=== PATIENT | male | born 1980 | race African-American/Black ===

== ENCOUNTER 2016-03-31 19:29 | Emergency (ER) | payer SELFPAY ==
[~2016-03-31] VITALS: Ht 160 cm; Wt 94.0 kg
[~2016-03-31 19:29] MED LIST: CLIN1CAP6 PO; HYDR-3533 PO; NAPR500 PO; PENI500T PO
[2016-03-31 19:31] VITALS: BP 168/95; PULSE 66; RESP 14; TEMP 98.4; O2SAT 98
[2016-03-31] MEDS ORDERED: AMOX500T PO (20:01)
[2016-03-31] MEDS ORDERED: DICL50TA3 PO (20:01)
--- NOTE | 2016-03-31 20:04 | PD ---
HPI Chief Complaint: Oral / Dental Pain or Problem Time Seen by Provider: 20:01 Travel History International Travel<30 days: No Contact w/Intl Traveler<30days: No Traveled to known affect area: No History of Present Illness HPI 35-year-old white male presents to emergency Department with complaints of dental pain. He states that he has at least a half a dozen bad teeth that need to be extracted. He states that he's been fighting dental pain for quite some time. It is progressively getting worse. Cold makes it worse. Patient denies any fever or chills. He states that he had a cold last week. That has resolved. No nausea vomiting. No fever chills now. PFSH Past Medical History Medical History: Denies Significant Hx Diminished Hearing: No Tetanus Vaccination: Unknown Past Surgical History Surgical History: No Previous Surgery Social History Alcohol Use: No Tobacco Use: Yes (1 PPD) Substance Use: No Allergies-Medications (Allergen,Severity, Reaction): Coded Allergies: No Known Allergies (Unverified , 03/31/16) Reported Meds & Prescriptions Reported Meds & Active Scripts Active No Active Prescriptions or Reported Medications Review of Systems Except as stated in HPI: all other systems reviewed are Neg Physical Exam Narrative GENERAL: Well-developed, well-nourished in no acute distress. Nontoxic appearing. HEAD: Normocephalic, atraumatic. EYES: Pupils equal round and reactive. Extraocular motions intact. No scleral icterus. No injection or drainage. ENT: TMs clear without erythema. The external auditory canals clear. Nose: clear . Posterior pharynx is pink and moist. No tonsillar edema or exudate. Uvula midline. Airway patent. The patient has diffuse periodontal disease with gingival edema and recession. He has multiple, multiple dental caries in various stages of decay. NECK: Trachea midline.Supple, nontender, moves head freely. No central bony tenderness or spasm. CARDIOVASCULAR: Regular rate and rhythm without murmurs, gallops, or rubs. RESPIRATORY: Clear to auscultation. Breath sounds equal bilaterally. No wheezes , rales, or rhonchi. GASTROINTESTINAL: Abdomen soft, non-tender, nondistended. No hepato-splenomegaly , or palpable masses. No guarding. EXTREMITIES: No clubbing, cyanosis, or edema. No joint tenderness, effusion, or edema noted. BACK: Nontender without deformity or crepitance. No flank tenderness. Data Data Last Documented VS Vital Signs Date Time Temp Pulse Resp B/P Pulse Ox O2 Delivery O2 Flow Rate FiO2 03/31/16 19:31 98.4 66 14 168/95 98 Room Air MDM Medical Decision Making Medical Screen Exam Complete: Yes Emergency Medical Condition: Yes Medical Record Reviewed: Yes Differential Diagnosis MDM: Moderate Differential diagnoses: Dental abscess, dental caries, osteitis, cellulitis Narrative Course This is dental caries, dentalgia Diagnosis Primary Impression: Dental caries Additional Impression: Dentalgia Patient Instructions: General Instructions Additional Instructions: Rest. Saltwater gargles. Holt oil on cotton balls. Amoxicillin and diclofenac follow-up with a dentist as soon as possible. And return to the ER if any problems. Med/Other Pt SpecificInfo: Prescription(s) given Scripts Diclofenac Sodium DR 50 Mg Tabdr50 Mg PO TID #21 TAB Prov:Tanisha Bullard DO 03/31/16 Amoxicillin 500 Mg Tab1,000 Mg PO BID #40 TAB Prov:Tanisha Bullard DO 03/31/16 Disposition: 01 DISCHARGE HOME Condition: Stable Stanford Acuna Mar 31, 2016 20:03
== END 2016-03-31 20:33 | disposition home or self-care (01) ==
LOC: NEPB 19:29
DX: K02.9 Dental caries, unspecified (principal); F17.210 Nicotine dependence, cigarettes, uncomplicated
CPT/HCPCS: 99282

== ENCOUNTER 2017-07-31 09:20 | Emergency (ER) | payer SELFPAY ==
[~2017-07-31] VITALS: Ht 160 cm; Wt 80.0 kg
[~2017-07-31 09:20] MED LIST changes: +AMOX500T PO; -CLIN1CAP6 PO; +DICL50TA3 PO; -HYDR-3533 PO; -NAPR500 PO; -PENI500T PO
[2017-07-31 09:27] VITALS: BP 165/89; PULSE 87; RESP 14; TEMP 97.6; O2SAT 100
[2017-07-31] MEDS ORDERED: CLIN150C14 PO (10:15)
--- NOTE | 2017-07-31 10:18 | PD ---
HPI Chief Complaint: Oral / Dental Pain or Problem Time Seen by Provider: 10:08 Travel History International Travel<30 days: No Contact w/Intl Traveler<30days: No Traveled to known affect area: No History of Present Illness HPI Patient comes to the emergency department complaining of right lower dental pain ongoing for 3 years. Patient reports pain got worse last night when his upper tooth fell out. Patient reports taking various pain medications with minimal to no relief of symptoms. Smoking makes pain worse. Reports pain radiates throughout the right side of his face. He states he has not been able to see a dentist for this secondary to finances. Patient denies anything making the pain better. Patient states he does not want anything for pain just wants a prescription for some antibiotics. PFSH Past Medical History Medical History: Denies Significant Hx Diminished Hearing: No Social History Alcohol Use: No Tobacco Use: Yes (1 PPD) Substance Use: No Allergies-Medications (Allergen,Severity, Reaction): Coded Allergies: No Known Allergies (Unverified , 03/31/16) Reported Meds & Prescriptions Reported Meds & Active Scripts Active Clindamycin (Clindamycin HCl) 150 Mg Cap 2 Cap PO Q6H [address] (Diclofenac Sodium) 50 Mg Tabdr 50 Mg PO TID Amoxicillin 500 Mg Tab 1,000 Mg PO BID Review of Systems Except as stated in HPI: all other systems reviewed are Neg Physical Exam Narrative GENERAL: Well-developed, overly nourished, in no acute distress, and non-ill appearing. SKIN: Focused skin assessment warm and dry. HEAD: Atraumatic. Normocephalic. EYES: Pupils equal and round. EOMI. No scleral icterus. No injection or drainage. ENT: No nasal bleeding or discharge. Mucous membranes pink and moist. Poor dentition with no visible or palpable abscess. Floor the mouth, submental, and submandibular are all soft palpation. Uvula is midline. Patient is swallowing on saliva without difficulty. NECK: Trachea midline. No cervical lymphadenopathy. Supple. No nuclear rigidity. RESPIRATORY: No accessory muscle use. No respiratory distress. MUSCULOSKELETAL: No obvious deformities. No clubbing. No cyanosis. No edema. Full range of motion. NEUROLOGICAL: Awake and alert. No obvious cranial nerve deficits. Motor grossly within normal limits. Normal speech. PSYCHIATRIC: Appropriate mood and affect; insight and judgment normal. Data Data Last Documented VS Vital Signs Date Time Temp Pulse Resp B/P (MAP) Pulse Ox O2 Delivery O2 Flow Rate FiO2 07/31/17 09:27 97.6 87 14 165/89 (114) 100 Orders Orders Ed Discharge Order (07/31/17 10:14) MDM Medical Decision Making Medical Screen Exam Complete: Yes Emergency Medical Condition: Yes Differential Diagnosis Dental abscess, dental infection, dentalgia Narrative Course The patient presented with dental pain. There is no fever. There is no significant facial swelling or evidence of cellulitis. There is poor dentition but no evidence of drainable abscess at this time. There is no evidence of significant deep or invading abscess at this time. The patient will be placed on antibiotics. The patient was instructed to follow up with a dentist. The patient was given the dental referral sheet. Warnings were discussed with the patient regarding worsening of infection. The patient is to return if pain worsens, develops progressive swelling or facial redness or fever. The patient agrees with plan. Patient in no obvious distress upon re-evaluation. Patient was asked if they wanted to speak to my attending, which the patient did not wish to do at this time. Any questions/concerns in reference to patient diagnosis/condition discussed and clarified prior to patient's discharge. Reinforced sheer importance of close follow up with patient's primary physician or primary care clinic and/or dentist. Instructed patient to return to ED immediately, if symptoms return/worsen. Patient showed understanding of above instructions. Further instructions and recommendations were detailed in discharge paperwork. Patient ambulated without difficulty out of ED at discharge. Diagnosis Primary Impression: Dentalgia Referrals: [facility] Patient Instructions: Dental Abscess (ED), Dental Caries (ED), General Instructions Additional Instructions: Follow-up with your primary care physician and dentist as soon as possible. Rinse mouth with warm salt water gargles. Take all medication as prescribed. Return to the emergency department if symptoms get worse. Med/Other Pt SpecificInfo: Prescription(s) given Scripts Clindamycin (Clindamycin) 150 Mg Cap 2 CAP PO Q6H for Infection for 10 Days, #80 CAP 0 Refills Prov: Stephen Thrasher MD 07/31/17 Disposition: 01 DISCHARGE HOME Condition: Stable Carson Francois July 31, 2017 10:18
== END 2017-07-31 10:45 | disposition home or self-care (01) ==
LOC: NEPD 09:20
DX: K08.89 Other specified disorders of teeth and supporting structures (principal); F17.210 Nicotine dependence, cigarettes, uncomplicated
CPT/HCPCS: 99283